=== PATIENT | male | born 1980 | race American Indian/Alaskan Native ===

== ENCOUNTER 2017-05-31 18:31 | Emergency (ER) | payer BC ==
[2017-05-31 19:07] VITALS: TEMP 98.1
[2017-05-31 20:14] VITALS: BP 131/88; PULSE 80; RESP 16; O2SAT 97
--- NOTE | 2017-05-31 21:23 | C.PDOC ---
History Of Present Illness Patient is a 37 y/o male who presents to the ED with a complaint of left upper CP that is digitally reproducable. Patient admits to seeing PMD a week ago and was prescribed antihistamines as well as urgent care 3 days ago and was prescibed Prometazol, both to no relief. 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 No other physical complaints at this time. Time Seen by Provider: 05/31/17 20:14 Chief Complaint (Nursing): Chest Pain History Per: Patient History/Exam Limitations: no limitations Onset/Duration Of Symptoms: Days (1 week ago) Current Symptoms Are (Timing): Still Present Recent travel outside of the [place]: No Past Medical History Reviewed: Historical Data, Nursing Documentation, Vital Signs Vital Signs: Last Vital Signs Temp 98.1 F 05/31/17 19:04 Pulse 80 05/31/17 19:55 Resp 16 05/31/17 19:55 BP 131/88 05/31/17 19:55 Pulse Ox 97 05/31/17 21:49 - Medical History PMH: Asthma, HTN Surgical History: No Surg Hx Family History: States: No Known Family Hx - Social History Hx Alcohol Use: Yes Hx Substance Use: No - Immunization History Hx Tetanus Toxoid Vaccination: No Hx Influenza Vaccination: No Hx Pneumococcal Vaccination: No Review Of Systems Constitutional: Negative for: Fever, Chills Cardiovascular: Positive for: Chest Pain (left upper chest) Respiratory: Negative for: Shortness of Breath Physical Exam - Physical Exam Appears: No Acute Distress, Other (muscular) Skin: Normal Color, Warm, Dry, No Rash Head: Atraumatic, Normacephalic Oral Mucosa: Moist Lymphatic: No Adenopathy Chest: Symmetrical, Other (digitally reproducable discomfort to left upper chest ; not positionally reproducacble) Cardiovascular: Rhythm Regular, No Murmur Respiratory: Normal Breath Sounds, No Rales, No Rhonchi, No Wheezing Neurological/Psych: Oriented x3, Normal Speech, Normal Cognition ED Course And Treatment ECG: Interpreted By Me ECG Rhythm: Sinus Rhythm ECG Interpretation: Normal O2 Sat by Pulse Oximetry: 97 (room air) Pulse Ox Interpretation: Normal - Radiology CXR: Interpreted by Me CXR Interpretation: Yes: No Acute Disease Progress Note: CXR and EKG ordered Medical Decision Making Medical Decision Making: minor digitally positionally discomfort anterior upper chest wall, normal ekg/ CXR/lung exam c/w costochondritis Disposition - Disposition Referrals: Mauro Boswell MD [Staff Provider] - Disposition: HOME/ ROUTINE Disposition Time: 21:48 Condition: GOOD Additional Instructions: tylenol as needed today normal exam, normal EKG, normal chest x-ray Instructions: Costochondritis (ED) Forms: [employer] ([place]) - Clinical Impression Clinical Impression: Chest wall discomfort - Scribe Statement The provider has reviewed the documentation as recorded by the Scribe Jess Arredondo All medical record entries made by the Scribe were at my direction and personally dictated by me. I have reviewed the chart and agree that the record accurately reflects my personal performance of the history, physical exam, medical decision making, and the department course for this patient. I have also personally directed, reviewed, and agree with the discharge instructions and disposition.
--- NOTE | 2017-06-01 09:20 | RAD ---
HISTORY: COMPARISON: No prior. TECHNIQUE: Chest PA and lateral FINDINGS: LINES AND TUBES: None. LUNG AND PLEURA: The lungs are hyperinflated and there is peribronchial thickening with chronic changes in both lungs. No focal consolidation. HEART AND MEDIASTINUM: The heart is not enlarged. The hilar and mediastinal contours are within normal limits. SKELETAL STRUCTURES: The bony structures are within normal limits for the patient's age. VISUALIZED UPPER ABDOMEN: Normal. OTHER FINDINGS: None. IMPRESSION: No lobar pneumonia. Findings are most compatible with reactive small airway disease.
== END 2017-05-31 21:55 | disposition home or self-care (01) ==
LOC: C.ER 18:31
DX: R07.89 Other chest pain (principal)